=== PATIENT | female | born 1985 | race Caucasian/White ===

== ENCOUNTER 2018-06-09 14:54 | Emergency (ER) | payer OTHER ==
[2018-06-09] MEDS: CEFTRIAXONE 1 GM INJ IM (18:08)
[2018-06-09] MEDS: LIDOCAINE 1% (MDV) 20 ML INJ SC (18:08)
[2018-06-09] MEDS: IBUPROFEN 600 MG TAB PO (18:08)
== END 2018-06-09 18:35 | disposition home or self-care (01) ==
LOC: FTE 14:54
DX: K04.7 Periapical abscess without sinus (principal)
CPT/HCPCS: 96372; 99284-25